=== PATIENT | male | born 1990 | race Caucasian/White ===

== ENCOUNTER 2019-11-16 16:53 | Emergency (ER) | payer BC, OTHER ==
[2019-11-16] MEDS ORDERED: Lidocaine 1% 10 ML MDV INJECT ONE (17:21)
[2019-11-16] MEDS ORDERED: ceFAZolin 2 GM in Premix Bag 1 BAG IV ONE (17:31)
[2019-11-16] MEDS ORDERED: HYDROmorphone 1 MG/ML Syringe IVPUSH ONE (17:31)
[2019-11-16] MEDS ORDERED: Sodium Chloride 0.9% 10 ML Syringe FLUSH PRN (17:31)
[2019-11-16] MEDS ORDERED: Bupivacaine 0.5% 10 ML SDV INJECT ONE (17:31)
--- NOTE | 2019-11-16 17:31 | EDM.PDOC ---
ED HPI GENERAL MEDICAL PROBLEM - General Chief Complaint: Laceration Stated Complaint: L MIDDLE FINGER LAC Time Seen by Provider: 11/16/19 17:06 Source of Information: Reports: Patient, RN Notes Reviewed History Limitations: Reports: No Limitations - History of Present Illness INITIAL COMMENTS - FREE TEXT/NARRATIVE: Patient is a 29-year-old male who presents to the ED for evaluation of a left middle finger injury. The patient states he was at work, and he got his left middle finger crushed with some cables at work. This resulted in a laceration to the most distal fingertip of his third digit on his left hand, that measures around 1-1/2 cm, and it appears that the nail is almost avulsed off. There is another laceration at the base of the finger at the beginning of the nailbed, this is a linear laceration and measures around 1 cm above the DIP. Patient has feeling distal to the injury, he is not complaining of any numbness or tingling at this time. He is able to bend his finger in all range of motion however he states is very painful to do so. He is unsure of his last tetanus immunization, but our records demonstrate that he had a booster in December 2015 Left Finger-Middle Pain Score (Numeric/FACES): 9 - Related Data Allergies Allergy/AdvReac Type Severity Reaction Status Date / Time No Known Allergies Allergy Verified 11/16/19 17:08 Home Meds: Home Meds Acetaminophen/HYDROcodone [[place] 325-5 MG] 1 tab PO Q6H PRN #10 tablet 11/16/19 [Rx] cephALEXin [Cephalexin] 500 mg PO QID #28 capsule 11/16/19 [Rx] Past Medical History - Past Health History Medical/Surgical History: Denies Medical/Surgical History Social & Family History - Family History Family Medical History: Noncontributory - Tobacco Use Smoking Status *Q: Never Smoker - Caffeine Use Caffeine Use: Reports: Coffee, Energy Drinks, Soda, Tea - Recreational Drug Use Recreational Drug Use: No ED ROS GENERAL - Review of Systems Review Of Systems: Comprehensive ROS is negative, except as noted in HPI. Musculoskeletal: Reports: Hand Pain (L 3rd digit crush injury) Skin: Reports: Wound (see HPI) Neurological: Denies: Numbness, Tingling ED EXAM, SKIN/RASH Exam: See Below Exam Limited By: No Limitations General Appearance: Alert, WD/WN, No Apparent Distress Eye Exam: Bilateral Eye: Normal Inspection Ears: Normal External Exam Nose: Normal Inspection Throat/Mouth: Normal Inspection, Normal Lips, Normal Teeth, Normal Gums, Normal Oropharynx, Normal Voice, No Airway Compromise Head: Atraumatic, Normocephalic Neck: Normal Inspection Respiratory/Chest: No Respiratory Distress, Lungs Clear, Normal Breath Sounds, No Accessory Muscle Use, Chest Non-Tender Cardiovascular: Normal Peripheral Pulses, Regular Rate, Rhythm, No Murmur Peripheral Pulses: 3+: Radial (L), Radial (R) Extremities: Normal Range of Motion (can move finger in all ROM, but is painful to do so) Neurological: Alert, Oriented, Normal Cognition, No Motor/Sensory Deficits Psychiatric: Normal Affect, Normal Mood Skin: Warm, Dry, Intact, Normal Color, No Rash, Other (Skin is visibly soiled) ED SKIN PROCEDURES - Laceration/Wound Repair Left Posterior Distal Digit - 3rd (Middle) Appearance: Subcutaneous, Linear, Moderately Contaminated Distal NVT: Neuro & Vascular Intact, No Tendon Injury Anesthetic Type: Digital Local Anesthesia - Lidocaine (Xylocaine): 1% Plain Local Anesthesia - Bupivicaine (Marcaine): 0.5% Plain Local Anesthetic Volume: Other (10cc) Skin Prep: Chlorhexidine (Hibiciens), Saline Saline Irrigation (cc's): 250 Exploration/Debridement/Repair: Wound Explored, In a Bloodless Field, Explored to Base, No Foreign Material Found Closed with: Sutures Lac/Wound length In cm: 1.5 Suture Size: 3-0 # of Sutures: 3 Suture Type: Prolene, Interrupted, Simple Sterile Dressing Applied: Nurse Tetanus Status Addressed: Yes Complications: No Left Posterior Medial Distal Digit - 3rd (Middle) Appearance: Subcutaneous, Moderately Contaminated Distal NVT: Neuro & Vascular Intact, No Tendon Injury Anesthetic Type: Digital Local Anesthesia - Lidocaine (Xylocaine): 1% Plain Local Anesthesia - Bupivicaine (Marcaine): 0.5% Plain Local Anesthetic Volume: Other (10cc total) Skin Prep: Chlorhexidine (Hibiciens) Saline Irrigation (cc's): 250 Exploration/Debridement/Repair: Wound Explored, In a Bloodless Field, Explored to Base, No Foreign Material Found Closed with: Sutures Lac/Wound length In cm: 1 Suture Size: 3-0 # of Sutures: 3 Suture Type: Prolene, Interrupted, Simple Sterile Dressing Applied: Nurse Tetanus Status Addressed: Yes Complications: No - Splinting Left 3rd Digit Splint Site: L middle finger Pre-Procedure NV Status: Normal Post-Procedure NV Status: Normal Splint Material: Aluminum-Foam (cage splint) Provider Post-Splint Application NV Check: NV Status Normal, Good Position Complications: No Course - Vital Signs Last Recorded V/S: Last Vital Signs Temp 98.2 F 11/16/19 17:04 Pulse 86 11/16/19 17:04 Resp 16 11/16/19 17:04 BP 141/92 H 11/16/19 17:04 Pulse Ox 99 11/16/19 17:04 - Orders/Labs/Meds Orders: Active Orders 24 hr Category Date Time Status Peripheral IV Care [RC] . DIRECTED Care 11/16/19 17:31 Ordered Fingers Third Digit Lt F2 [CR] Stat Exams 11/16/19 17:22 Ordered Sodium Chloride 0.9% [Saline Flush] Med 11/16/19 17:31 Ordered 10 ml FLUSH ASDIRECTED PRN Peripheral IV Insertion Adult [OM.PC] Routine Oth 11/16/19 17:31 Ordered Medication Orders Sodium Chloride (Saline Flush) 10 ml FLUSH ASDIRECTED PRN PRN Reason: Keep Vein Open Last Admin: 11/16/19 18:10 Dose: 10 ml Meds: Medications Generic Name Dose Route Start Last Admin Trade Name Freq PRN Reason Stop Dose Admin Sodium Chloride 10 ml 11/16/19 17:31 11/16/19 18:10 Saline Flush FLUSH 10 ml ASDIRECTED PRN Administration Keep Vein Open Discontinued Medications Generic Name Dose Route Start Last Admin Trade Name Freq PRN Reason Stop Dose Admin Bupivacaine HCl 10 ml 11/16/19 17:31 11/16/19 18:24 Sensorcaine-Mpf 0.5% INJECT 11/16/19 17:32 10 ml ONETIME ONE Administration Hydromorphone HCl 1 mg 11/16/19 17:31 11/16/19 18:01 Dilaudid IVPUSH 11/16/19 17:32 1 mg ONETIME ONE Administration Cefazolin Sodium/Dextrose 2 gm 50 mls @ 100 mls/hr 11/16/19 17:31 11/16/19 18 :05 / Premix IV 11/16/19 18:00 100 mls/hr ONETIME ONE Administration Lidocaine HCl 10 ml 11/16/19 17:21 11/16/19 17:31 Xylocaine 1% INJECT 11/16/19 17:22 10 ml ONETIME ONE Administration - Re-Assessments/Exams Free Text/Narrative Re-Assessment/Exam: 11/16/19 18:51 Patient was highly suspected to have a fracture of his distal fingertip of the third left finger. An IV was placed, 2 g of Ancef was given for management of an open fracture, and the patient was given 0.5 mg of Dilaudid for pain management. As suspected, the patient's x-ray does show a fracture of the distal third phalange of the left hand. Departure - Departure Time of Disposition: 17:42 Disposition: Home, Self-Care 01 Condition: Fair Clinical Impression: Fracture of distal phalanx of finger, open Qualifiers: Encounter type: initial encounter Finger: middle finger Fracture alignment: nondisplaced Laterality: left Qualified Code(s): S62.663B - Nondisplaced fracture of distal phalanx of left middle finger, initial encounter for open fracture - Discharge Information *PRESCRIPTION DRUG MONITORING PROGRAM REVIEWED*: Yes *COPY OF PRESCRIPTION DRUG MONITORING REPORT IN PATIENT IESHA: No Prescriptions: Acetaminophen/HYDROcodone [[place] 325-5 MG] 1 tab PO Q6H PRN #10 tablet PRN Reason: Pain cephALEXin [Cephalexin] 500 mg PO QID #28 capsule Instructions: Finger Fracture, Adult, Fuhy-sm-Hehy, Stitches, [place], or Adhesive Wound Closure, [id number] Referrals: PCP,None [Primary Care Provider] - Forms: ED Department Discharge Additional Instructions: You have been evaluated in the ED for your laceration. Sutures will need to stay in for 14 days. You may return to the ED or clinic for removal. Please keep this area clean and dry, you may cleanse with regular soap and water. No vigorous scrubbing. Watch out for signs of infection like increased redness, swelling, pain at the laceration site, or if you should develop any fevers or chills. However due to the nature of your injury, you have been given oral antibiotics, please take 1 tab 4 times daily until gone. You were also given some stronger pain medications, please take 1 tab every 6 hours as needed for pain relief, you should not operate heavy machinery while taking the stronger pain medication, you may try to save this for nighttime use if possible. These medications can cause constipation, recommend you take a stool softener while taking these medications. Please return to ED if your symptoms change or worsen. Sepsis Event Note - Evaluation Sepsis Screening Result: No Definite Risk - Focused Exam Vital Signs: Vital Signs Temp Pulse Resp BP Pulse Ox 11/16/19 17:04 98.2 F 86 16 141/92 H 99 Date Exam was Performed: 11/16/19 Time Exam was Performed: 19:34 - My Orders Last 24 Hours: My Active Orders 11/16/19 17:22 Fingers Third Digit Lt F2 [CR] Stat 11/16/19 17:31 Peripheral IV Care [RC] . DIRECTED Sodium Chloride 0.9% [Saline Flush] 10 ml FLUSH ASDIRECTED PRN Peripheral IV Insertion Adult [OM.PC] Routine - Assessment/Plan Last 24 Hours: My Active Orders 11/16/19 17:22 Fingers Third Digit Lt F2 [CR] Stat 11/16/19 17:31 Peripheral IV Care [RC] . DIRECTED Sodium Chloride 0.9% [Saline Flush] 10 ml FLUSH ASDIRECTED PRN Peripheral IV Insertion Adult [OM.PC] Routine
[2019-11-16 20:33] VITALS: BP 139/84; PULSE 92
--- NOTE | 2019-11-17 07:38 | CR ---
Left third finger: Three views centered to the left third finger were obtained. Fracture is noted within the distal aspect of the distal phalanx of the third finger. Distal fragment shows displacement. Soft tissue injury and soft tissue swelling is also noted within this finger. No proximal bony abnormality is seen. Impression: 1. Displaced fracture within the distal left third finger with associated soft tissue swelling and soft tissue injury. Diagnostic code #3 This report was dictated in [place] Standard Time
== END 2019-11-16 20:00 | disposition home or self-care (01) ==
LOC: JD.ED 16:53
DX: S62.663B Nondisplaced fracture of distal phalanx of left middle finger, initial encounter for open fracture (principal); W23.0XXA Caught, crushed, jammed, or pinched between moving objects, initial encounter; Y92.89 Other specified places as the place of occurrence of the external cause; Y99.0 Civilian activity done for income or pay
CPT/HCPCS: 12001; 73140; 96365; 96375; 99283; J0690; J1170; J2001; J3490

== ENCOUNTER 2023-02-17 02:03 | Emergency (ER) | payer OTHER ==
[2023-02-17 02:54] VITALS: BP 126/86; PULSE 94
[2023-02-17 04:12] LABS: CORONAVIRUS COVID-19 NAA NEGATIVE (NEGATIVE)
== END 2023-02-17 11:10 | disposition home or self-care (01) ==
LOC: JD.ED 02:03
DX: F32.A Depression, unspecified (principal); F10.220 Alcohol dependence with intoxication, uncomplicated; Z20.822 Contact with and (suspected) exposure to COVID-19; Z79.899 Other long term (current) drug therapy; Z86.16 Personal history of COVID-19
CPT/HCPCS: 0241U; 36415; 80053; 80143; 80179; 80306; 80307; 84443; 85025; 93005; 99285; 99284

== ENCOUNTER 2023-03-18 17:11 | Emergency (ER) | payer OTHER ==
[2023-03-18] MEDS ORDERED: Sodium Chloride 0.9% 10 ML Syringe FLUSH PRN (17:32)
[2023-03-18] MEDS ORDERED: Metoclopramide 10 MG/2 ML SDV IVPUSH ONE (17:32)
[2023-03-18] MEDS ORDERED: Sodium Chloride 0.9% 1,000 ML IV ONE ×3 (17:32→22:03)
[2023-03-18 18:22] LABS: BASOPHILS ABSOLUTE AUTO 0.02 K/mm3 (0.01-0.08); BASOPHILS PERCENT AUTO 0.2 % (0.1-1.2); EOSINOPHILS ABSOLUTE AUTO 0.11 K/mm3 (0.04-0.54); EOSINOPHILS PERCENT AUTO 0.9 (0.8-7.0); HEMATOCRIT 46.3 % (40.1-51.0); HEMOGLOBIN 15.7 gm/dl (13.7-17.5); IMMATURE GRAN ABSOLUTE AUTO 0.03 K/mm3 (0.00-0.10); IMMATURE GRAN PERCENT AUTO 0.3 % (<=1.0); LYMPHOCYTES ABSOLUTE AUTO 2.71 K/mm3 (1.32-3.57); LYMPHOCYTES PERCENT AUTO 22.6 % (21.8-53.1); MEAN CORPUSCULAR HEMOGLOBIN 31.3 pg (25.7-32.2); MEAN CORPUSCULAR HGB CONC 33.9 g/dl (32.2-35.5); MEAN CORPUSCULAR VOLUME 92.2 fl (79.0-92.2); MEAN PLATELET VOLUME 9.6 fl (9.4-12.3); MONOCYTES ABSOLUTE AUTO 0.96 K/mm3 (0.30-0.82); NEUTROPHILS ABSOLUTE AUTO 8.14 K/mm3 (1.78-5.38); PLATELET COUNT,PLT 321 K/mm3 (163-337); RED BLOOD CELL COUNT 5.02 M/mm3 (4.63-6.08); WHITE BLOOD CELL COUNT,WBC 11.97 K/mm3 (4.23-9.07)
[2023-03-18 18:46] LABS: INR 0.96; PROTHROMBIN TIME 10.3 SECONDS (9.7-12.0)
[2023-03-18 18:58] LABS: A/G RATIO 1.2 (1-2); ALBUMIN 4.4 g/dl (3.4-5.0); ANION GAP 14.2 (5-15); BILIRUBIN TOTAL 0.3 mg/dL (0.2-1.0); CALCIUM 8.8 mg/dL (8.5-10.1); EST CRCL DRUG DOSING (CG) 104.09 mL/min; ETHANOL BLOOD MEDICAL 0.31 gm% (0.00); MAGNESIUM 2.3 mg/dL (1.8-2.4); POTASSIUM,K 4.2 mEq/L (3.5-5.1); PROTEIN TOTAL,TP 8.2 g/dl (6.4-8.2)
[2023-03-18 18:59] LABS: TSH 0.877 uIU/mL (0.358-3.74)
[2023-03-18 20:07] LABS: BARBITURATE SCREEN,URINE NEGATIVE (CUTOFF=200); BENZODIAZEPINES SCREEN,URINE NEGATIVE (CUTOFF=150); BUPRENORPHINE SCREEN,URINE NEGATIVE (CUTOFF=10); METHADONE SCREEN, URINE NEGATIVE (CUT0FF=200); METHAMPHETAMINES SCREEN, URINE NEGATIVE (CUTOFF=500); OXYCODONE SCREEN,URINE NEGATIVE (CUT0FF=100); PROPOXYPHENE SCREEN,URINE NEGATIVE (CUTOFF=300); THC SCREEN,URINE 20 NG/ML NEGATIVE (CUTOFF=50)
[2023-03-18 20:11] LABS: AMPHETAMINES SCREEN, URINE NEGATIVE (CUTOFF=500)
[2023-03-19 08:33] VITALS: BP 130/76; PULSE 82
== END 2023-03-19 07:45 | disposition home or self-care (01) ==
LOC: JD.ED 17:11
DX: F10.920 Alcohol use, unspecified with intoxication, uncomplicated (principal); Z86.16 Personal history of COVID-19
CPT/HCPCS: 36415; 80053; 80143; 80179; 80306; 80307; 83735; 84443; 85025; 85610; 93005; 96361; 96374; 99284; J2765; J3490; J7030; 93010

== ENCOUNTER 2023-04-21 16:50 | Emergency (ER) | payer OTHER ==
[2023-04-21 17:36] LABS: BASOPHILS ABSOLUTE AUTO 0.03 K/mm3 (0.01-0.08); BASOPHILS PERCENT AUTO 0.3 % (0.1-1.2); EOSINOPHILS PERCENT AUTO 2.2 (0.8-7.0); HEMATOCRIT 42.1 % (40.1-51.0); HEMOGLOBIN 14.3 gm/dl (13.7-17.5); IMMATURE GRAN ABSOLUTE AUTO 0.02 K/mm3 (0.00-0.10); IMMATURE GRAN PERCENT AUTO 0.2 % (<=1.0); LYMPHOCYTES PERCENT AUTO 20.9 % (21.8-53.1); MEAN CORPUSCULAR HEMOGLOBIN 31.5 pg (25.7-32.2); MEAN CORPUSCULAR VOLUME 92.7 fl (79.0-92.2); MEAN PLATELET VOLUME 9.7 fl (9.4-12.3); MONOCYTES ABSOLUTE AUTO 0.94 K/mm3 (0.30-0.82); MONOCYTES PERCENT AUTO 10.4 % (5.3-12.2); NEUTROPHILS ABSOLUTE AUTO 5.99 K/mm3 (1.78-5.38); PLATELET COUNT,PLT 282 K/mm3 (163-337); RED BLOOD CELL COUNT 4.54 M/mm3 (4.63-6.08); WHITE BLOOD CELL COUNT,WBC 9.08 K/mm3 (4.23-9.07)
[2023-04-21 17:55] LABS: INR 0.98; PROTHROMBIN TIME 10.5 SECONDS (9.7-12.0)
[2023-04-21 17:56] LABS: PTT,PARTIAL THROMBOPLSTIN TIME 30.1 SECONDS (21.7-31.4)
[2023-04-21 18:02] LABS: A/G RATIO 1.1 (1-2); ALBUMIN 3.9 g/dl (3.4-5.0); ANION GAP 12.9 (5-15); BILIRUBIN TOTAL 0.4 mg/dL (0.2-1.0); CALCIUM 9.3 mg/dL (8.5-10.1); EST CRCL DRUG DOSING (CG) 104.09 mL/min; MAGNESIUM 2.2 mg/dL (1.8-2.4); POTASSIUM,K 3.9 mEq/L (3.5-5.1); PROTEIN TOTAL,TP 7.5 g/dl (6.4-8.2)
[2023-04-21 18:49] VITALS: BP 134/92; PULSE 85
== END 2023-04-21 18:43 | disposition home or self-care (01) ==
LOC: JD.ED 16:50
DX: R07.89 Other chest pain (principal); R20.0 Anesthesia of skin; R20.2 Paresthesia of skin; Z86.16 Personal history of COVID-19
CPT/HCPCS: 36415; 71045; 71045-26; 80053; 83735; 84484; 85025; 85610; 85730; 93005; 93010; 99283; 99285